=== PATIENT | male | born 1940 | race Caucasian/White ===

== ENCOUNTER 2020-02-09 12:02 | Emergency (ER) | payer MEDICARE, OTHER ==
[~2020-02-09] VITALS: Ht 180.3 cm; Wt 79.5 kg
[2020-02-09 12:11] VITALS: Ht 180.3 cm; Wt 79.5 kg
[2020-02-09] MEDS ORDERED: LISINOPRIL10 MG (12:24)
[2020-02-09] MEDS ORDERED: LYRICA25 MG (12:24)
[2020-02-09] MEDS ORDERED: DILTIAZEM 24HR240 M4 (12:25)
[2020-02-09 13:28] LABS: BASOPHILS 0.1 % (0-2); EOSINOPHILS 0.5 % (0-7); HEMOGLOBIN 14.3 g/dL (13.5-17.5); IMMATURE GRANULOCYTES 0.1 % (0-5); LYMPHOCYTES 10.4 % (15-50); MCH 32.1 pg (26.0-34.0); MCV 94.4 fL (80.0-100.0); MEAN PLATELET VOLUME 11.5 fL (7.4-10.4); MONOCYTES 5.8 % (2-11); NEUTROPHILS 83.1 % (40-80); PLATELET COUNT 144 10x3/uL (130-400); RBC 4.45 10x6/uL (4.20-6.10); RDW 13.1 % (11.5-14.5); WBC 7.6 10x3/uL (4.8-10.8)
[2020-02-09] MEDS ORDERED: ANUSOL-HC25 MG RC (13:28)
[2020-02-09] MEDS ORDERED: MIRALAX17 GM PO (13:28)
[2020-02-09 13:37] LABS: INR 1.04 (0.85-1.17); PROTIME 13.5 SECONDS (11.6-15.0)
[2020-02-09 13:38] LABS: ANION GAP 14.4 mmol/L (8-16); APTT 35.8 SECONDS (22.8-39.4); CALCIUM 9.2 mg/dL (8.5-10.1); CARBON DIOXIDE 23.3 mmol/L (21.0-32.0); CREATININE - SERUM 1.1 mg/dL (0.6-1.3); POTASSIUM - SERUM 3.7 mmol/L (3.5-5.1)
[2020-02-09 13:44] LABS: ALBUMIN 3.6 g/dL (3.4-5.0); BILIRUBIN - TOTAL 0.97 mg/dL (0.2-1.3); PROTEIN - SERUM 6.5 g/dL (6.4-8.2)
[2020-02-09 14:42] VITALS: BP 132/74
== END 2020-02-09 14:45 | disposition home or self-care (01) ==
LOC: D.ER 12:02
PROVIDERS: Emergency Medicine
DX: K59.00 Constipation, unspecified (principal); K64.8 Other hemorrhoids